=== PATIENT | female | born 1955 | race Caucasian/White ===

== ENCOUNTER 2021-02-28 18:26 | Emergency (ER) | payer BC ==
[~2021-02-28] VITALS: Ht 162.6 cm; Wt 103.4 kg
[2021-02-28] MEDS ORDERED: LIPITOR (18:32)
[2021-02-28] MEDS ORDERED: LISINOPRIL (18:32)
[2021-02-28] MEDS ORDERED: OXYC-128 PO (19:50)
[2021-02-28 20:15] VITALS: BP 155/80
--- NOTE | 2021-02-28 20:15 | NUR ---
Patient discharged to home in stable condition. Written and verbal after care instructions given. Patient verbalizes understanding of instructions. Stressed follow up or return to ER for worsening s/s.
== END 2021-02-28 20:15 | disposition home or self-care (01) ==
LOC: ER 18:26
DX: S20.219A Contusion of unspecified front wall of thorax, initial encounter (principal); V49.40XA Driver injured in collision with unspecified motor vehicles in traffic accident, initial encounter; Y92.414 Local residential or business street as the place of occurrence of the external cause; I10 Essential (primary) hypertension; Z90.49 Acquired absence of other specified parts of digestive tract; E78.5 Hyperlipidemia, unspecified; E66.9 Obesity, unspecified; Z68.39 Body mass index [BMI] 39.0-39.9, adult; K42.9 Umbilical hernia without obstruction or gangrene
CPT/HCPCS: 71045; A4663